=== PATIENT | male | born 1975 | race Caucasian/White ===

== ENCOUNTER 2021-01-24 01:01 | Emergency (ER) | payer SELFPAY ==
[~2021-01-24] VITALS: Ht 180.3 cm; Wt 86.2 kg
[2021-01-24 01:01] VITALS: BP_SYST 171
--- NOTE | 2021-01-24 01:01 | NUR ---
Patient to [facility] for evaluation. Side rails up.
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
--- NOTE | 2021-01-24 01:10 | NUR ---
ER Dr. CIFUENTES at bedside examining patient.
[2021-01-24 01:34] VITALS: BP_SYST 168
--- NOTE | 2021-01-24 01:34 | NUR ---
Patient AND [facility] OFFICER given written and verbal discharge instructions and verbalizes understanding. ER MD discussed with patient the results and treatment provided. Patient in stable condition. ID arm band NO RX given. Patient educated on pain management and to follow up with PMD. Pain Scale 0/10 Opportunity for questions provided and answered.
== END 2021-01-24 01:34 ==
LOC: SED 01:01
DX: Z04.3 Encounter for examination and observation following other accident (principal); I10 Essential (primary) hypertension; V49.49XA Driver injured in collision with other motor vehicles in traffic accident, initial encounter; Y93.89 Activity, other specified; Y92.413 State road as the place of occurrence of the external cause; Y99.8 Other external cause status
CPT/HCPCS: 99283